=== PATIENT | male | born 1945 | race Caucasian/White ===

== ENCOUNTER 2019-09-27 09:28 | Emergency (ER) | payer BC, MEDICARE, OTHER ==
[2019-09-27] MEDS ORDERED: Sodium Chloride 0.9% 10 ML Syringe FLUSH PRN (09:39)
[2019-09-27] MEDS ORDERED: Sodium Chloride 0.9% 1,000 ML IV ONE (09:40)
[2019-09-27] MEDS ORDERED: Ondansetron 4 MG/2 ML SDV IVPUSH ONE ×2 (09:40→10:31)
[2019-09-27] MEDS ORDERED: HYDROmorphone 1 MG/ML Syringe IVPUSH ONE (09:40)
--- NOTE | 2019-09-27 10:03 | EDM.PDOC ---
ED HPI GENERAL MEDICAL PROBLEM - General Stated Complaint: KIDNEY STONES Time Seen by Provider: 09/27/19 09:28 Source of Information: Reports: Patient History Limitations: Reports: No Limitations - History of Present Illness INITIAL COMMENTS - FREE TEXT/NARRATIVE: PtAngel presents to ER with complaints of R sided flank and abdominal pain that started in the night last night. He also complains of some discoloration of his urine. Denies any trauma to the area. No fever or chills. He states that he has a history of kidney stones in the past and relates that the discomfort is similar. He complains of nausea and vomiting. He states that when he previously had a kidney stone, it passed without intervention. Onset: Today Location: Reports: Abdomen, Back Quality: Reports: Sharp Severity: Severe Right Flank Pain Score (Numeric/FACES): 10 - Related Data Allergies Allergy/AdvReac Type Severity Reaction Status Date / Time No Known Allergies Allergy Verified 09/27/19 10:32 Home Meds: Home Meds Omeprazole Magnesium [Prilosec Otc] 20 mg PO DAILY 10/07/14 [History] Cholecalciferol (Vitamin D3) [Vitamin D3] 1,000 unit PO DAILY 09/27/19 [History] Multivitamin with Minerals [Multiple Vitamin] 1 tab PO DAILY 09/27/19 [History] ED ROS GENERAL - Review of Systems Review Of Systems: See Below Constitutional: Reports: No Symptoms HEENT: Reports: No Symptoms Respiratory: Reports: No Symptoms Cardiovascular: Reports: No Symptoms Endocrine: Reports: No Symptoms GI/Abdominal: Reports: Abdominal Pain : Reports: Flank Pain, Hematuria Musculoskeletal: Reports: No Symptoms Skin: Reports: No Symptoms Neurological: Reports: No Symptoms Psychiatric: Reports: No Symptoms Hematologic/Lymphatic: Reports: No Symptoms Immunologic: Reports: No Symptoms ED EXAM, GENERAL - Physical Exam Exam: See Below Exam Limited By: No Limitations General Appearance: Alert, WD/WN, No Apparent Distress Nose: Normal Inspection, Normal Mucosa, No Blood Throat/Mouth: Normal Inspection, Normal Lips, Normal Teeth, Normal Gums, Normal Oropharynx, Normal Voice, No Airway Compromise Head: Atraumatic, Normocephalic Neck: Normal Inspection, Supple, Non-Tender, Full Range of Motion Respiratory/Chest: No Respiratory Distress, Lungs Clear, Normal Breath Sounds, No Accessory Muscle Use, Chest Non-Tender Cardiovascular: Normal Peripheral Pulses, Regular Rate, Rhythm, No Edema, No JVD , No Murmur Peripheral Pulses: 4+: Radial (L) GI/Abdominal: Normal Bowel Sounds, Soft, No Organomegaly, No Distention, No Mass , Tender (Male) Exam: Deferred Rectal (Males) Exam: Deferred Back Exam: Normal Inspection, Full Range of Motion, CVA Tenderness (R) Extremities: Normal Inspection, Normal Range of Motion, Normal Capillary Refill Neurological: Alert, Oriented, CN II-XII Intact, Normal Cognition, No Motor/ Sensory Deficits Psychiatric: Normal Affect, Normal Mood Skin Exam: Warm, Dry, Intact, Normal Color, No Rash Lymphatic: No Adenopathy Course - Vital Signs Last Recorded V/S: Last Vital Signs Temp 36.3 C 09/27/19 09:30 Pulse 82 09/27/19 11:30 Resp 16 09/27/19 09:30 BP 173/79 H 09/27/19 11:30 Pulse Ox 97 09/27/19 09:30 - Orders/Labs/Meds Orders: Active Orders 24 hr Category Date Time Status Sodium Chloride 0.9% [Saline Flush] Med 09/27/19 09:39 Active 10 ml FLUSH ASDIRECTED PRN Peripheral IV Insertion Adult [OM.PC] Routine Oth 09/27/19 09:39 Ordered Medication Orders Sodium Chloride (Saline Flush) 10 ml FLUSH ASDIRECTED PRN PRN Reason: Keep Vein Open Labs: Laboratory Tests 09/27/19 09/27/19 09/27/19 Range/Units 09:20 09:48 09:48 WBC 5.6 (4.0-10.0) x10^3/uL RBC 5.47 (4.5-6.0) x10^6/uL Hgb 17.1 (14.0-18.0) g/dL Hct 49.3 (40.0-52.0) % MCV 90.1 (78.0-93.0) fL MCH 31.3 (26.0-32.0) pg MCHC 34.7 (32.0-36.0) g/dL RDW Coeff of Medardo 12.6 (10.0-15.0) % Plt Count 170 (130-400) x10^3/uL Neut % (Auto) 58.5 (50.0-80.0) % Lymph % (Auto) 34.2 (25.0-50.0) % Bailey % (Auto) 6.0 (2.0-11.0) % Eos % (Auto) 1.1 (0.0-4.0) % Baso % (Auto) 0.2 (0.2-1.2) % PT 10.7 (10.0-12.8) SEC INR 0.9 L (2.0-3.5) Sodium (136-145) mmol/L Potassium (3.5-5.1) mmol/L Chloride (98-107) mmol/L Carbon Dioxide (21-32) mmol/L Anion Gap (10-20) mmol/L BUN (7-18) mg/dL Creatinine (0.70-1.30) mg/dL Est Cr Clr Drug Dosing Estimated GFR (MDRD) Glucose (74-106) mg/dL Calcium (8.5-10.1) mg/dL Corrected Calcium (8.5-10.1) mg/dL Total Bilirubin (0.2-1.0) mg/dL AST (15-37) U/L ALT (16-63) U/L Alkaline Phosphatase (46-116) U/L Total Protein (6.4-8.2) g/dL Albumin (3.4-5.0) g/dL Globulin Albumin/Globulin Ratio Urine Color Dark yellow H (YELLOW) Urine Appearance Cloudy H (CLEAR) Urine pH 5.5 (5.0-8.0) Ur Specific [place] 1.025 Urine Protein 30 H (NEGATIVE) mg/dL Urine Glucose (UA) Negative (NEGATIVE) mg/dL Urine Ketones Negative (NEGATIVE) mg/dL Urine Occult Blood Large H (NEGATIVE) Urine Nitrite Negative (NEGATIVE) Urine Bilirubin Negative (NEGATIVE) Urine Urobilinogen 0.2 (0.2) EU/dL Ur Leukocyte Esterase Negative (NEGATIVE) Urine RBC >100 H (NOT SEEN) /HPF Urine WBC 0-5 (NOT SEEN) /HPF Ur Squamous Epith Cells Occasional H (NEGATIVE) /HPF Urine Bacteria Rare (NEGATIVE) /HPF Urine Mucus Few H (NEGATIVE) /LPF 09/27/19 Range/Units 09:48 WBC (4.0-10.0) x10^3/uL RBC (4.5-6.0) x10^6/uL Hgb (14.0-18.0) g/dL Hct (40.0-52.0) % MCV (78.0-93.0) fL MCH (26.0-32.0) pg MCHC (32.0-36.0) g/dL RDW Coeff of Medardo (10.0-15.0) % Plt Count (130-400) x10^3/uL Neut % (Auto) (50.0-80.0) % Lymph % (Auto) (25.0-50.0) % Bailey % (Auto) (2.0-11.0) % Eos % (Auto) (0.0-4.0) % Baso % (Auto) (0.2-1.2) % PT (10.0-12.8) SEC INR (2.0-3.5) Sodium 141 (136-145) mmol/L Potassium 3.5 (3.5-5.1) mmol/L Chloride 103 (98-107) mmol/L Carbon Dioxide 27 (21-32) mmol/L Anion Gap 14.5 (10-20) mmol/L BUN 20 H (7-18) mg/dL Creatinine 1.1 (0.70-1.30) mg/dL Est Cr Clr Drug Dosing TNP Estimated GFR (MDRD) > 60 Glucose 145 H (74-106) mg/dL Calcium 9.7 (8.5-10.1) mg/dL Corrected Calcium 9.86 (8.5-10.1) mg/dL Total Bilirubin 0.5 (0.2-1.0) mg/dL AST 24 (15-37) U/L ALT 29 (16-63) U/L Alkaline Phosphatase 77 (46-116) U/L Total Protein 7.4 (6.4-8.2) g/dL Albumin 3.8 (3.4-5.0) g/dL Globulin 3.6 Albumin/Globulin Ratio 1.06 Urine Color (YELLOW) Urine Appearance (CLEAR) Urine pH (5.0-8.0) Ur Specific [place] Urine Protein (NEGATIVE) mg/dL Urine Glucose (UA) (NEGATIVE) mg/dL Urine Ketones (NEGATIVE) mg/dL Urine Occult Blood (NEGATIVE) Urine Nitrite (NEGATIVE) Urine Bilirubin (NEGATIVE) Urine Urobilinogen (0.2) EU/dL Ur Leukocyte Esterase (NEGATIVE) Urine RBC (NOT SEEN) /HPF Urine WBC (NOT SEEN) /HPF Ur Squamous Epith Cells (NEGATIVE) /HPF Urine Bacteria (NEGATIVE) /HPF Urine Mucus (NEGATIVE) /LPF Meds: Medications Generic Name Dose Route Start Last Admin Trade Name Freq PRN Reason Stop Dose Admin Sodium Chloride 10 ml 09/27/19 09:39 Saline Flush FLUSH ASDIRECTED PRN Keep Vein Open Discontinued Medications Generic Name Dose Route Start Last Admin Trade Name Freq PRN Reason Stop Dose Admin Hydromorphone HCl 1 mg 09/27/19 09:40 09/27/19 09:52 Dilaudid IVPUSH 09/27/19 09:41 1 mg ONETIME ONE Administration Hydromorphone HCl 0.5 mg 09/27/19 12:10 09/27/19 12:17 Dilaudid IV 09/27/19 12:11 0.5 mg ONETIME ONE Administration Sodium Chloride 1,000 mls @ 1,000 mls/hr 09/27/19 09:40 09/27/19 09:53 Normal Saline IV 09/27/19 10:39 1,000 mls/hr .BOLUS ONE Administration Ketorolac Tromethamine 15 mg 09/27/19 11:52 09/27/19 12:08 Toradol IVPUSH 09/27/19 11:53 15 mg ONETIME ONE Administration Ondansetron HCl 4 mg 09/27/19 09:40 09/27/19 09:52 Zofran IVPUSH 09/27/19 09:41 4 mg ONETIME ONE Administration Ondansetron HCl 4 mg 09/27/19 10:31 09/27/19 10:43 Zofran IVPUSH 09/27/19 10:32 4 mg ONETIME ONE Administration Prochlorperazine Edisylate 10 mg 09/27/19 11:18 09/27/19 11:26 Compazine IV 09/27/19 11:19 10 mg ONETIME ONE Administration - Radiology Interpretation Free Text/Narrative:: 5mm stone R proximal ureter with hydronephrosis. Departure - Departure Time of Disposition: 12:00 Disposition: Home, Self-Care 01 Clinical Impression: Kidney stone on right side - Discharge Information Instructions: Kidney Stones, [id number] Referrals: Niesha Marquis PA-C [Primary Care Provider] - Forms: ED Department Discharge Additional Instructions: Strain urine. Collect any stones for analysis in clinic. [place] 10/325mg 1 every 4 hours as needed for pain. Zofran 4mg ODT 1 tab every 6 hours for nausea Flomax 0.4mg 1 tab daily to assist with passing for stone Drink plenty of fluids Follow-up in clinic/return to ER if the pain/nausea is not adequately handled by the oral medications. Otherwise, recheck in clinic in 7-10 days. Sepsis Event Note - Focused Exam Vital Signs: Vital Signs Temp Pulse Resp BP Pulse Ox 09/27/19 11:30 82 173/79 H 09/27/19 09:30 36.3 C 71 16 179/99 H 97 Date Exam was Performed: 09/27/19 Time Exam was Performed: 12:51 - My Orders Last 24 Hours: My Active Orders 09/27/19 09:39 Sodium Chloride 0.9% [Saline Flush] 10 ml FLUSH ASDIRECTED PRN Peripheral IV Insertion Adult [OM.PC] Routine - Assessment/Plan Last 24 Hours: My Active Orders 09/27/19 09:39 Sodium Chloride 0.9% [Saline Flush] 10 ml FLUSH ASDIRECTED PRN Peripheral IV Insertion Adult [OM.PC] Routine Plan: Strain urine. Collect any stones for analysis in clinic. [place] 10/325mg 1 every 4 hours as needed for pain. Zofran 4mg ODT 1 tab every 6 hours for nausea Flomax 0.4mg 1 tab daily to assist with passing for stone Drink plenty of fluids Follow-up in clinic/return to ER if the pain/nausea is not adequately handled by the oral medications. Otherwise, recheck in clinic in 7-10 days.
[2019-09-27 10:14] LABS: CHLORIDE,CL 103 mmol/L (98-107); SODIUM,NA 141 mmol/L (136-145)
[2019-09-27 10:16] LABS: ANION GAP 14.5 mmol/L (10-20)
[2019-09-27] MEDS ORDERED: Prochlorperazine 10 MG/2 ML SDV IV ONE (11:18)
--- NOTE | 2019-09-27 11:47 | CT ---
[id number] CT/CT Abdomen Pelvis WO IV EXAM: CT Abdomen Pelvis WO IV CLINICAL DATA: RIGHT SIDED FLANK PAIN. COMPARISON STUDY: None. FINDINGS: Dependent atelectasis at the lung bases bilaterally. The liver, spleen, pancreas, adrenal glands are unremarkable. The gallbladder is surgically absent. There is a 5 mm stone within the proximal 3rd of the right ureter resulting in moderate right hydroureteronephrosis. Additional renal calculi are identified bilaterally. The largest stone within the left kidney measures up to 0.6 cm. No left hydronephrosis or hydroureter. Multiple peripelvic cysts on the left. No bowel obstruction or inflammation. Colonic diverticulosis without evidence of acute diverticulitis. No lymphadenopathy, free fluid, or pneumoperitoneum. Scattered changes of spondylosis the spine. No fracture or osseous lesion. IMPRESSION: 5 mm obstructing stone within the proximal 3rd of the right ureter. Jad Resendiz DO 09/27/19 [id number] Thank you for allowing us to participate in the care of your patient.
[2019-09-27] MEDS ORDERED: Ketorolac 15 MG/ML SDV IVPUSH ONE (11:52)
[2019-09-27] MEDS: HYDROmorphone 0.5 MG/0.5 ML Syringe IV ONE ×2 (12:17→13:53)
== END 2019-09-27 12:15 | disposition home or self-care (01) ==
LOC: VM.ED 09:28
DX: N13.2 Hydronephrosis with renal and ureteral calculous obstruction (principal)
CPT/HCPCS: 36415; 74176; 80053; 81001; 85025; 85610; 96361; 96374; 96375; 96376; 99284-25; J0780; J1170; J1885; J2405; J7030